=== PATIENT | female | born 1955 | race Caucasian/White ===

== ENCOUNTER 2016-11-27 13:06 | Emergency (ER) | payer OTHER ==
[2016-11-27] MEDS ORDERED: ASPIRIN PO STA (13:18)
--- NOTE | 2016-11-27 13:34 | PROVIDER DOCUMENTATION ---
HPI-Chest Pain - General Chief Complaint: Chest Pain Stated Complaint: CHEST PAIN Time Seen by Provider: 11/27/16 13:19 Source: patient Allergies/Adverse Reactions: Patient Allergies Allergy/AdvReac Type Severity Reaction Status Date / Time Penicillins AdvReac RASH Verified 11/27/16 13:16 - History of Present Illness-CP Nature of Presenting Problem: 61 y/o WF c/o substernal chest pain that began approx 1 hour ago while moving furniture. States she had a heart cath 3-4 years ago at the [facility], and stress test at this time. Took 2 aspirins today when the pain began, it has subsided since the onset. No history of stent or CABG. Was sob when she began, but no longer sob. Denies diaphoresis, nausea or vomiting. Location: reports: substernal Chest Pain Radiation: reports: epigastric Quality of Pain: reports: aching, pressure Severity in ED: moderate Onset/Duration: 1 hour ago Timing: still present, constant Associated Symptoms: denies: abdominal pain, back pain, diaphoresis, dizziness, edema, fatigue, fever/chills, headache, heartburn, nausea, rash, shortness of breath, swelling/lump in chest, syncope, vomiting, weakness Nitro Today/Relief: no nitro taken today Aspirin Treatment Today: 81 mg x 2 Prior Chest Pain/Cardiac Workup: reports: cardiac cath, cardiolite scan Similar Symptoms Previously?: No Recently Seen Here or By Another Healthcare Provider: No Review of Systems - Adult - REVIEW OF SYSTEMS - ADULT Constitutional: reports: no symptoms reported. denies: chills, fever, fatique Eyes: reports: no symptoms reported. denies: decreased vision, blurred vision, double vision, eye pain Ears, Nose, Mouth & Throat: reports: no symptoms reported. denies: ear pain, nose pain, throat pain Cardiovascular: reports: see HPI, chest pain. denies: irregular heart rate, palpitations, syncope Respiratory: reports: no symptoms reported. denies: cough, shortness of breath , wheezing Gastrointestinal: reports: no symptoms reported. denies: abdominal pain, diarrhea, nausea, vomiting Genitourinary: reports: no symptoms reported. denies: dysuria, discharge, frequency, incontinence Musculoskeletal: reports: no symptoms reported. denies: muscle aches Integumentary: reports: no symptoms reported. denies: rash Neurological: reports: no symptoms reported. denies: headache/migraines Psychiatric: reports: no symptoms reported Endocrine: reports: no symptoms reported Hematologic/Lymphatic: reports: no symptoms reported Allergic/Immunologic: reports: no symptoms reported All Other Systems: Reviewed and Negative Past History - Adult - PAST MEDICAL HISTORY-ADULT Review of Records: reports: Old Records Reviewed, Nursing Assessment Review, Medications Reviewed Major Childhood Illnesses: reports: denies history Cardiovascular: reports: denies history Respiratory: reports: denies history Gastrointestinal: reports: GERD Obstetrical/Gynecological: reports: denies history Genitourinary: reports: denies history Musculoskeletal: reports: denies history Neurological: reports: denies history Endocrine/Immune: reports: denies history Other Conditions: reports: denies history - PRIOR SURGERIES/PROCEDURES Surgical/Procedure History: reports: cholecystectomy - IMMUNIZATION STATUS Childhood Immunizations: See Nurse Assessment Flu Vaccine: See Nurse Assessment - FAMILY HISTORY Family History: CAD over 55 yo, CAD under 55yo, HTN - SOCIAL HISTORY Smoking: denies Substance Use: none/never Alcohol Use Frequency: never Physical Exam-General - PHYSICAL EXAM-ADULT Initial Vital Signs Reviewed: Yes - CONSTITUTIONAL General Appearance: appears well, alert, no apparent distress - EYES Eyes: PERRL/EOMI, pink conjunctivae - HEAD, EARS, NOSE, MOUTH & THROAT HENMT: normocephalic/atraumatic, moist mucous membranes - NECK Neck: non-tender, full range of motion, supple, normal inspection - RESPIRATORY Respiratory: chest non-tender, lungs clear, normal breath sounds, no pleuratic chest pain, no respiratory distress, no accessory muscle use. negative: respiratory distress, decreased breath sounds, accessory muscle use, crackles, rales, rhonchi, wheezing - CARDIOVASCULAR Cardiovascular: normal peripheral pulses, regular rate, rhythm - GASTROINTESTINAL (ABDOMEN) Abdominal Exam: normal bowel sounds, non tender, soft, no organomegaly, no pulsatile mass. negative: abdominal bruit, abnormal bowel sounds, distended, guarding, rigid, rebound, tenderness - MUSCULOSKELETAL Extremity: normal range of motion, normal gait Peripheral Pulses: radial (R): 2+, radial (L): 2+, dorsalis-pedis (R): 2+, dorsalis-pedis (L): 2+ - SKIN Integumentary: normal color, normal turgor, warm/dry - NEUROLOGIC Neurologic: grossly normal, no motor/sensory deficits - PSYCHIATRIC Psych/Mental Status: normal mood/affect, normal thought content, normal thought process, oriented x 3 Progress - PLAN OF CARE/RESULTS Progress/Plan/Lab Results: Vital Signs Temp Pulse Resp BP Pulse Ox 11/27/16 15:00 74 22 107/77 94 L 11/27/16 14:45 76 26 H 118/79 98 11/27/16 14:30 72 14 122/84 96 11/27/16 14:00 73 12 120/81 93 L 11/27/16 13:45 76 12 124/73 95 11/27/16 13:30 77 15 113/79 11/27/16 13:25 77 20 122/78 11/27/16 13:13 98.2 F 84 16 130/73 99 Penicillins Adverse Reaction (Verified 11/27/16 13:16) RASH Laboratory 11/27/16 11/27/16 11/27/16 15:30 15:30 13:38 WBC RBC Hgb Hct MCV MCH MCHC RDW Std Deviation Plt Count MPV Immature Gran % (Auto) Neut % (Auto) Lymph % (Auto) [place] % (Auto) Eos % (Auto) Baso % (Auto) Immature Gran # (Auto) Neut # (Auto) Lymph # (Auto) [place] # (Auto) Eos # (Auto) Baso # (Auto) PT 14.2 INR 1.07 APTT (Factor Assay) 30.3 D-Dimer < 0.22 L Sodium Potassium Chloride Carbon Dioxide Anion Gap BUN Creatinine Estimated GFR/1.73 m2 BUN/Creatinine Ratio Glucose Calculated Osmolality Calcium Magnesium Total Bilirubin AST ALT Alkaline Phosphatase Creatine Kinase 112 Troponin T < 0.010 Myj-M-Fcvkizmxkpy Pept Total Protein Albumin Globulin Albumin/Globulin Ratio 11/27/16 11/27/16 11/27/16 13:38 13:38 13:38 WBC 5.43 RBC 4.32 Hgb 13.1 Hct 40.2 MCV 93.1 MCH 30.3 MCHC 32.6 L RDW Std Deviation 12.2 Plt Count 246 MPV 9.9 Immature Gran % (Auto) 0.2 Neut % (Auto) 48.9 Lymph % (Auto) 38.5 [place] % (Auto) 8.3 Eos % (Auto) 3.7 Baso % (Auto) 0.4 Immature Gran # (Auto) 0.01 Neut # (Auto) 2.66 Lymph # (Auto) 2.09 [place] # (Auto) 0.45 Eos # (Auto) 0.20 Baso # (Auto) 0.02 PT INR APTT (Factor Assay) D-Dimer Sodium Potassium Chloride Carbon Dioxide Anion Gap BUN Creatinine Estimated GFR/1.73 m2 BUN/Creatinine Ratio Glucose Calculated Osmolality Calcium Magnesium Total Bilirubin AST ALT Alkaline Phosphatase Creatine Kinase Troponin T < 0.010 Hni-W-Naplfwrrecv Pept 19 Total Protein Albumin Globulin Albumin/Globulin Ratio 11/27/16 13:38 WBC RBC Hgb Hct MCV MCH MCHC RDW Std Deviation Plt Count MPV Immature Gran % (Auto) Neut % (Auto) Lymph % (Auto) [place] % (Auto) Eos % (Auto) Baso % (Auto) Immature Gran # (Auto) Neut # (Auto) Lymph # (Auto) [place] # (Auto) Eos # (Auto) Baso # (Auto) PT INR APTT (Factor Assay) D-Dimer Sodium 142 Potassium 4.2 Chloride 109 H Carbon Dioxide 23 L Anion Gap 10 BUN 10 Creatinine 0.6 Estimated GFR/1.73 m2 > 60 BUN/Creatinine Ratio 17 Glucose 91 Calculated Osmolality 282 Calcium 9.0 Magnesium 2.2 Total Bilirubin 0.40 AST 35 H ALT 24 Alkaline Phosphatase 92 Creatine Kinase 121 Troponin T Gyh-U-Bxhtkmsixjm Pept Total Protein 6.5 Albumin 4.3 Globulin 2.0 Albumin/Globulin Ratio 2.0 Orders Category Date Time Status Cardiac Monitoring DIRECTED Care 11/27/16 13:19 Active Oxygen Therapy- ED Nursing DIRECTED Care 11/27/16 13:19 Active Saline Loc NOW Care 11/27/16 13:19 Active CHEST-2 VIEWS [RAD] Stat Exams 11/27/16 13:19 Draft CBC WITH ELECTRONIC DIFF [HEME] Stat Lab 11/27/16 13:38 Completed CK PROFILE [SP CHEM] Stat Lab 11/27/16 13:38 Completed CK PROFILE [SP CHEM] Stat Lab 11/27/16 15:30 Completed COMPREHENSIVE METABOLIC PANEL [CHEM] Stat Lab 11/27/16 13:38 [address] D-DIMER [address] [COAG] Stat Lab 11/27/16 13:38 Completed MAGNESIUM [CHEM] Stat Lab 11/27/16 13:38 Completed PRO B-NATRIURETIC PEPTIDE Stat Lab 11/27/16 13:38 Completed PROTIME WITH INR PL [COAG] Stat Lab 11/27/16 13:[address] [COAG] Stat Lab 11/27/16 13:38 Completed TROPONIN T Stat Lab 11/27/16 13:38 Completed TROPONIN T Stat Lab 11/27/16 15:30 Completed Aspirin Med 11/27/16 13:18 Discontinued 325 mg PO STAT STA EKG [EKG] Stat Ther 11/27/16 13:19 Draft EKG [EKG] Stat Ther 11/27/16 15:06 Ordered Departure - Departure Time of Disposition Order: 16:04 DIAGNOSIS: Atypical chest pain Disposition: HOME 01 Certified Medical Emergency: Emergent Condition: Stable Additional Instructions: Follow up with your global marketing intern this week ED Follow Up Instructions: You have been treated by a care provider in the Emergency Department. These instructions are being provided to you so you can have an understanding of how to care for yourself upon discharge. Upon discharge from the Emergency Department, you are responsible for making arrangements for follow-up care by a physician of your choice. Take all prescribed medications as directed. Return to the Emergency Department immediately for any new or worsening symptoms. You may call the Physician Referral phone number at [phone] to obtain a list of Physicians who are taking new patients. Attestation - Physician/ JAVIER Attestation Patient care was provided by Advanced Practice Provider:: Yes Advanced Practice Provider:: Vero Duarte Advanced Practice Provider documentation review:: The Mid-level provider documentation, treatment plan and medical decision making was reviewed by the physician who agrees with all treatment and medical decision making by the MLP.
[2016-11-27 13:43] LABS: MANUAL DIFF NEEDED? NO
--- NOTE | 2016-11-27 13:55 | EKG Report ---
Test Performed on : 11/27/2016 1:41:17 PM Test Reason : CP Blood Pressure : / mmHG Vent. Rate : 076 BPM Atrial Rate : 076 BPM P-R Int : 140 ms QRS Dur : 078 ms QT Int : 376 ms P-R-T Axes : 071 048 047 degrees QTc Int : 423 ms Normal sinus rhythm. Normal ECG When compared with ECG of 10-OCT-2007 11:47, No significant change was found Unconfirmed Result
[2016-11-27 14:15] LABS: AGAP 10; ALBUMIN 4.3 g/dL (3.5-5.0); ALKALINE PHOSPHATASE 92 U/L (32-104); BUN 10 mg/dL (8-22); CHLORIDE 109 mmol/L (98-107); CK PROFILE 121 U/L (24-173); COSMO 282; GOT 35 U/L (10-30); GPT 24 U/L (10-36); MAGNESIUM 2.2 mg/dL (1.5-2.7); POTASSIUM 4.2 mmol/L (3.5-5.1); SODIUM 142 mmol/L (136-145); TCO2 23 mmol/L (25-35); TOTAL PROTEIN 6.5 g/dL (6.3-8.3)
[2016-11-27 14:18] LABS: INR 1.07 (0.86-1.15); PROTIME 14.2 Seconds (12.1-15.5)
[2016-11-27 14:19] LABS: PTT PL 30.3 Seconds (22.6-43.9)
[2016-11-27 14:55] LABS: BASO% 0.4 % (0.0-0.8); EOS% 3.7 % (0.0-10.0); HEMATOCRIT 40.2 % (37.0-47.0); HEMOGLOBIN 13.1 g/dL (12.0-16.0); IMM GRAN# 0.01 X1000 (0.0-0.04); IMM GRAN% 0.2 % (0.0-0.5); LYMPH# 2.09 X1000 (1.2-3.4); LYMPH% 38.5 % (20.5-51.1); MCH 30.3 PG (27-31); MCHC 32.6 g/dL (33-37); MCV 93.1 FL (81-99); MONO# 0.45 X1000 (0.11-0.59); MONO% 8.3 % (1.7-9.3); MPV 9.9 FL (7.4-10.4); NEUT% 48.9 % (42.2-75.2); PLT 246 X1000 (130-400); RBC 4.32 XMIL (4.2-5.4)
--- NOTE | 2016-11-27 15:12 | Diag Imaging Result Document ---
PROCEDURE NAME: CHEST-2 VIEWS - 11/27/2016 TWO VIEWS OF THE CHEST: FINDINGS: Inspiration is suboptimal. There is no evidence of acute cardiac or pulmonary disease and no previous studies are available for comparison. There is accentuated thoracic kyphosis. IMPRESSION: No evidence of acute disease.
--- NOTE | 2016-11-27 15:28 | ED EKG INTERP ---
EKG Interpretation - EKG Time of EKG reading by physician:: 13:41 EKG Read and Signed by:: Bull Colon EKG Interpretation (*Must complete 3 of following elements*): Normal Rate: 76 Rhythm: NSR Attestation - Scribe Verification/Attestation Scribe:: Lina Chen Acting as Scribe for:: Bull Colon Scribe documention review:: This chart was documented by a scribe and accurately reflects the service the provider performed and the decisions made by the provider.
[2016-11-27 16:29] VITALS: BP 102/70
--- NOTE | 2016-11-27 16:40 | ED EKG INTERP ---
EKG Interpretation - EKG Time of EKG reading by physician:: 15:11 EKG Read and Signed by:: Bull Colon EKG Interpretation (*Must complete 3 of following elements*): Normal Rate: 71 Rhythm: NSR Attestation - Scribe Verification/Attestation Scribe:: Lina Chen Acting as Scribe for:: Bull Colon Scribe documention review:: This chart was documented by a scribe and accurately reflects the service the provider performed and the decisions made by the provider.
--- NOTE | 2016-11-27 17:32 | EKG Report ---
Test Performed on : 11/27/2016 3:11:30 PM Test Reason : cp Blood Pressure : / mmHG Vent. Rate : 071 BPM Atrial Rate : 071 BPM P-R Int : 144 ms QRS Dur : 084 ms QT Int : 396 ms P-R-T Axes : 048 038 033 degrees QTc Int : 430 ms Normal sinus rhythm. Normal ECG When compared with ECG of 27-NOV-2016 13:41, (Unconfirmed) No significant change was found Unconfirmed Result
== END 2016-11-27 16:35 | disposition home or self-care (01) ==
LOC: P.ED 13:06
DX: R07.89 Other chest pain (principal); R06.02 Shortness of breath; R10.13 Epigastric pain; Z82.49 Family history of ischemic heart disease and other diseases of the circulatory system
CPT/HCPCS: 71020; 80053; 82550; 83735; 83880; 84484; 85025; 85379; 85610; 85730; 93005; 99284